=== PATIENT | male | born 1950 | race Hispanic/Latino ===

== ENCOUNTER 2019-01-20 13:13 | Emergency (ER) | payer MEDICARE ==
[2019-01-20 13:17] VITALS: RESP 18; BMI 35.9
--- NOTE | 2019-01-20 14:05 | ED PDOC ---
Arrival/HPI - General Historian: Patient - Critical Care Critical Care Minutes: 45 minutes - History of Present Illness Narrative History of Present Illness (Text): 01/20/19 14:01 68 year old male with a past medical history of hypothyroidism , mi (s/p 2 stents), cad and left ear deafness presents to the emergency room reporting nausea vomiting and abdominal discomfort since 5:30 this morning .Patient reports taking Xantac and Peptobismol with no improvement in symptoms. Patient states the pain was mainly located on the right flank with radiation to the abdomen. Patient went to [facility] where he received Toradol and was then referred the patient to the hospital for further workup. Patient denies any chest pain, fevers, chills, headaches, dizziness, syncopal episodes or any other complaints. PMD: Dr. Altamirano Medical history: hypothyroidism, mi, cad Surgical history: Left ear surgery Medications: Levothyroxine, Lovastatin Social history: Lives in [place]. Former smoker quit 2004. Occasional alcohol use. Denies drug abuse. Time/Duration: 4-6 hours Symptom Onset: Sudden Symptom Course: Improving Quality: Aching Severity Level: 2 Activities at Onset: Rest Context: Sitting, Standing, Walking <Lyndon Siegel - Last Filed: 01/20/19 20:01> <Carlito Chow - Last Filed: 01/20/19 20:15> - General Chief Complaint: Male Genitourinary Time Seen by Provider: 01/20/19 13:30 Past Medical History - Provider Review Nursing Documentation Reviewed: Yes - Cardiac Hx SD: Yes - Renal Hx Kidney Stones: Yes - Endocrine/Metabolic Hx Diabetes Mellitus Type 2: Yes Hx Hypothyroidism: Yes - Gastrointestinal Hx Diverticulitis: Yes - Psychiatric Hx Substance Use: No <Lyndon Siegle - Last Filed: 01/20/19 20:01> Family/Social History - Physician Review Nursing Documentation Reviewed: Yes Family/Social History: No Known Family HX Smoking Status: Never Smoked Hx Alcohol Use: No Hx Substance Use: No <Lyndon Siegel - Last Filed: 01/20/19 20:01> Allergies/Home Meds <Lyndon Siegel - Last Filed: 01/20/19 20:01> <Carlito Chow - Last Filed: 01/20/19 20:15> Allergies/Adverse Reactions: Allergies Penicillins Allergy (Verified 01/20/19 13:42) ANGIOEDEMA Home Medications: Home Meds Medication Instructions Recorded Confirmed ASA/Al Hydroxide/Ca Carbonat 325 mg PO 07/21/13 08/24/14 [Aspirin Non-Irritating] Lovastatin 40 mg PO 07/21/13 08/24/14 Aspirin 325 mg PO 08/24/14 08/24/14 Metformin Hydrochloride [Metformin] 500 mg PO 08/24/14 08/24/14 Review of Systems - Physician Review All systems were reviewed & negative as marked: Yes - Review of Systems Constitutional: Normal. absent: Weight Change Eyes: Normal. absent: Vision Changes, Photophobia ENT: Normal. absent: Hearing Changes, Tinnitus Respiratory: Normal. absent: SOB, Cough Cardiovascular: Normal. absent: Chest Pain, Syncope Gastrointestinal: Nausea, Vomiting. absent: Normal, Constipation, Diarrhea, Hematemesis Genitourinary Male: Normal. absent: Dysuria, Frequency, Hematuria Musculoskeletal: Normal. absent: Arthralgias Skin: Normal. absent: Rash, Pruritis Neurological: Normal. absent: Headache, Dizziness Endocrine: Normal. absent: Diaphoresis, Polyuria Hemo/Lymphatic: Normal. absent: Adenopathy, Easy Bleeding Psychiatric: Normal. absent: Anxiety, Depression <Lyndon Siegel - Last Filed: 01/20/19 20:01> Physical Exam Vital Signs Reviewed: Yes Vital Signs Temp Pulse Resp BP Pulse Ox 01/20/19 13:15 97.4 F L 59 L 18 152/78 H 98 Temperature: Afebrile Blood Pressure: Hypertensive Pulse: Bradycardic Respiratory Rate: Normal Appearance: Positive for: Well-Appearing, Non-Toxic, Comfortable Pain Distress: None Mental Status: Positive for: Alert and Oriented X 3. No: Confused - Systems Exam Head: Present: Atraumatic, Normocephalic. No: Abrasion Pupils: Present: PERRL Extroacular Muscles: Present: EOMI. No: Gaze Palsy Conjunctiva: Present: Normal. No: Injected Mouth: Present: Moist Mucous Membranes. No: Dry Neck: Present: Normal Range of Motion. No: Meningeal Signs, JVD Respiratory/Chest: Present: Clear to Auscultation, Good Air Exchange. No: Wheezes Cardiovascular: Present: Regular Rate and Rhythm, Normal S1, S2. No: Tachycardic Abdomen: Present: Normal Bowel Sounds Back: No: CVA Tenderness Upper Extremity: Present: Normal Inspection. No: Cyanosis, Edema, Swelling, Erythema Lower Extremity: Present: Normal Inspection. No: Edema, Dayami's Sign Neurological: Present: CN II-XII Intact, Speech Normal Skin: Present: Dry, Normal Color Psychiatric: Present: Alert, Oriented x 3, Normal Insight <Lyndon Siegel - Last Filed: 01/20/19 20:01> Vital Signs Temp Pulse Resp BP Pulse Ox 01/20/19 13:15 97.4 F L 59 L 18 152/78 H 98 <ClaudineCarlito - Last Filed: 01/20/19 20:15> Medical Decision Making ED Course and Treatment: 01/20/19 14:09 68 year old male presents with nausea vomting and and abdominal discomfort since this morning. Plan: CBC/CMP UA/ Urine cx Abdomen/pelvis ct w/o po or iv contrast 01/20/19 16:[address] Longo Urology. Patient cleared to be discharged with instructions to follow up in the clinic for stone removal. 01/20/19 16:21 Discussed with patients the risks of Percocet use. - RAD Interpretation Radiology Orders: 01/20/19 13:59 ABDOMEN & PELVIS [ABD & PELVIS W/O PO OR IV CONT] [CT] Stat <Lyndon Siegel - Last Filed: 01/20/19 20:01> ED Course and Treatment: Seen and examined with resident. [place] Anaya is a 68 year old female who presents to the emergency department with nausea, vomiting, and abdominal discomfort since this 5:30 AM this morning. Physical Exam Attestation: Abdomen: normal bowel sounds - Lab Interpretations Lab Results: Total Bilirubin 0.5 mg/dL (0.2-1.3) 01/20/19 14:20 AST 71 U/L (17-59) H 01/20/19 14:20 ALT 45 U/L (7-56) 01/20/19 14:20 Alkaline Phosphatase 82 U/L (38-126) 01/20/19 14:20 Total Protein 8.5 g/dL (5.8-8.3) H 01/20/19 14:20 Albumin 4.8 g/dL (3.0-4.8) 01/20/19 14:20 Globulin 3.7 gm/dL 01/20/19 14:20 Albumin/Globulin Ratio 1.3 (1.1-1.8) 01/20/19 14:20 Urine Color Yellow (YELLOW) 01/20/19 13:32 Urine Appearance Clear (CLEAR) 01/20/19 13:32 Urine pH 5.5 (4.7-8.0) 01/20/19 13:32 Ur Specific [place] >= 1.030 (1.005-1.035) 01/20/19 13:32 Urine Protein 30 mg/dL (<30 mg/dL) H 01/20/19 13:32 Urine Glucose (UA) Negative mg/dL (NEGATIVE) 01/20/19 13:32 Urine Ketones Negative mg/dL (NEGATIVE) 01/20/19 13:32 Urine Blood Large (NEGATIVE) H 01/20/19 13:32 Urine Nitrate Negative (NEGATIVE) 01/20/19 13:32 Urine Bilirubin Negative (NEGATIVE) 01/20/19 13:32 Urine Urobilinogen 0.2 E.U./dL (<1 E.U./dL) 01/20/19 13:32 Ur Leukocyte Esterase Negative Lizz/uL (NEGATIVE) 01/20/19 13:32 Urine RBC 15 - 20 /hpf (0-2) H 01/20/19 13:32 Urine WBC 1 - 3 /hpf (0-6) 01/20/19 13:32 Ur Epithelial Cells None /hpf (0-5) 01/20/19 13:32 Amorphous Sediment Few /hpf (NONE) 01/20/19 13:32 Urine Bacteria Many /hpf (NONE) 01/20/19 13:32 Hyaline Casts 0 - 2 /hpf (NONE) 01/20/19 13:32 Fine Granular Casts 0 - 2 /hpf (NONE) 01/20/19 13:32 - RAD Interpretation Radiology Orders: 01/20/19 13:59 ABDOMEN & PELVIS [ABD & PELVIS W/O PO OR IV CONT] [CT] Stat <ImmCarlito T - Last Filed: 01/20/19 20:15> Disposition/Present on Arrival - Present on Arrival Any Indicators Present on Arrival: No History of DVT/PE: No History of Uncontrolled Diabetes: No Urinary Catheter: No History of Decub. Ulcer: No History Surgical Site Infection Following: None - Disposition Have Diagnosis and Disposition been Completed?: Yes Disposition Time: 16:09 Patient Plan: Discharge <Lyndon Siegel - Last Filed: 01/20/19 20:01> <Carlito Chow - Last Filed: 01/20/19 20:15> - Disposition Diagnosis: Nephrolithiasis Disposition: HOME/ ROUTINE Condition: IMPROVED Discharge Instructions (ExitCare): Kidney Stones in Adults Additional Instructions: 1.F/u with PMD within 5 days of discharge. 2.F/u with Urology within 5 days of discharge. 3.Return to hospital for any new or worsening symptoms. Prescriptions: Ibuprofen [Motrin Tab] 600 mg PO Q6 PRN #30 tab PRN Reason: Pain, Moderate (4-7) Ondansetron [Zofran] 4 mg PO Q8H PRN #21 tab PRN Reason: Nausea/Vomiting oxyCODONE/Acetaminophen [Percocet 5/325 mg Tab] 1 tab PO Q6 #16 tab Tamsulosin [Flomax] 0.4 mg PO DAILY #5 cap Referrals: Jon Longo MD [Staff Provider] - Follow up with primary Forms: [employer] ([place])
[2019-01-20 14:26] LABS: PH,URINE 5.5 (4.7-8.0); URINE BILIRUBIN NEGATIVE (NEGATIVE); URINE BLOOD LARGE (NEGATIVE); URINE GLUCOSE (UA) NEGATIVE (NEGATIVE); URINE LEUKOCYTE ESTERASE NEGATIVE Leu/uL (NEGATIVE); URINE PROTEIN 30 mg/dL (<30 mg/dL); URINE UROBILINOGEN 0.2 E.U./dL (<1 E.U./dL)
[2019-01-20 14:30] LABS: BASO # 0.03 K/mm3 (0.0-2.0); BASO % 0.3 % (0.0-3.0); EOS % 0.1 % (1.5-5.0); HEMOGLOBIN 14.3 g/dL (14.0-18.0); LYMPH # 0.8 (1.2-3.4); LYMPH % 6.6 % (22.0-35.0); MEAN CELL VOLUME 93.9 fl (80.0-105.0); MEAN CORPUSCULAR HEMOGLOBIN 31.1 pg (25.0-35.0); MEAN CORPUSCULAR HGB CONC 33.1 g/dl (31.0-37.0); MEAN PLATELET VOLUME 9.9 fl (7.0-11.0); MONO # 0.7 (0.1-0.6); MONO % 5.6 % (1.0-6.0); RBC 4.6 10^6/uL (3.5-6.1); RED CELL DISTRIBUTION WIDTH 13.9 % (11.5-14.5); WHITE BLOOD COUNT 11.6 10^3/uL (4.5-11.0)
[2019-01-20 14:39] LABS: URINE APPEARANCE CLEAR (CLEAR); URINE COLOR YELLOW (YELLOW)
[2019-01-20 14:40] LABS: ALB/GLOB RATIO 1.3 (1.1-1.8); ALBUMIN 4.8 g/dL (3.0-4.8); ALT/SGPT 45 U/L (7-56); AST/SGOT 71 U/L (17-59); BLOOD UREA NITROGEN 26 mg/dL (7-21); CALCIUM 10.1 mg/dL (8.4-10.5); GFR NON-AFRICAN AMERICAN 55
[2019-01-20 14:44] LABS: URINE RBC 15 - 20 /hpf (0-2)
[2019-01-20 14:45] LABS: URINE FINE GRANULAR CAST 0 - 2 /hpf; URINE HYALINE CAST 0 - 2 /hpf
[2019-01-20 14:46] LABS: URINE AMORPHOUS SEDIMENT FEW /hpf; URINE BACTERIA MANY /hpf
--- NOTE | 2019-01-20 14:51 | CT ---
Date of service: 01/20/2019 PROCEDURE: CT Abdomen and Pelvis without intravenous contrast HISTORY: r/o nephrolithiasis COMPARISON: None. TECHNIQUE: Technique. Contrast dose: Radiation dose: Total exam DLP = 1099.63 mGy-cm. This CT exam was performed using one or more of the following dose reduction techniques: Automated exposure control, adjustment of the mA and/or kV according to patient size, and/or use of iterative reconstruction technique. FINDINGS: LOWER THORAX: Unremarkable. LIVER: Unremarkable. No gross lesion or ductal dilatation. GALLBLADDER AND BILE DUCTS: Unremarkable. PANCREAS: Unremarkable. No gross lesion or ductal dilatation. SPLEEN: Unremarkable. ADRENALS: Unremarkable. No mass. KIDNEYS AND URETERS: There is a 7 mm stone in the right proximal ureter. There is mild hydronephrosis. The stone is seen on coronal image 66 and axial image 98 of series 3. There is mild perinephric stranding VASCULATURE: Unremarkable. No aortic aneurysm. Aortic calcification. BOWEL: Unremarkable. No obstruction. No gross mural thickening. APPENDIX: Unremarkable. Normal appendix. PERITONEUM: Unremarkable. No free fluid. No free air. LYMPH NODES: Unremarkable. No enlarged lymph nodes. BLADDER: Unremarkable. REPRODUCTIVE: Unremarkable. BONES: No acute fracture. OTHER FINDINGS: None. IMPRESSION: There is a 7 mm stone in the right proximal ureter. There is mild hydronephrosis. The stone is seen on coronal image 66 and axial image 98 of series 3. There is mild perinephric stranding
[2019-01-20 16:18] VITALS: O2SAT 99
[2019-01-20 19:26] VITALS: BP 135/68; PULSE 72; TEMP 98.2
--- NOTE | 2019-01-21 10:09 | RAD ---
Date of service: 01/20/2019 HISTORY: nephrolithiasis COMPARISON: None available. FINDINGS: BOWEL: Normal. No obstruction. No free air. BONES: There is a degenerative bone fragment adjacent to the superior acetabulum on the right. OTHER FINDINGS: There is a 4 mm stone in the region of the lower pole of the right kidney. IMPRESSION: As above
== END 2019-01-20 17:18 | disposition home or self-care (01) ==
LOC: ED 13:13
DX: N20.0 Calculus of kidney (principal); I25.10 Atherosclerotic heart disease of native coronary artery without angina pectoris; I25.2 Old myocardial infarction; E11.9 Type 2 diabetes mellitus without complications

== ENCOUNTER 2019-01-25 10:42 | Outpatient (CLI) | payer MEDICARE | END 2019-01-25 10:43 | disposition home or self-care (01) | LOC: RAD 10:42 ==

== ENCOUNTER 2019-01-27 09:38 | Outpatient (CLI) | payer MEDICARE | END 2019-01-27 09:39 | disposition home or self-care (01) | LOC: CARDIO 09:38 ==

== ENCOUNTER 2019-02-05 11:10 | Outpatient (CLI) | payer MEDICARE | END 2019-02-05 11:11 | disposition home or self-care (01) | LOC: RAD 11:10 ==

== ENCOUNTER → 2019-02-23 10:37 | Outpatient (CLI) | payer MEDICARE | END | disposition home or self-care (01) | LOC: RAD 11-20 11:21 ==

== ENCOUNTER 2019-03-10 08:23 | Outpatient (CLI) | payer MEDICARE | END 2019-03-10 08:24 | disposition home or self-care (01) | LOC: CARDIO 08:23 | DX: Z01.810 Encounter for preprocedural cardiovascular examination (principal); R07.89 Other chest pain; I25.10 Atherosclerotic heart disease of native coronary artery without angina pectoris ==

== ENCOUNTER 2019-03-18 10:58 | Day surgery (SDC) | payer MEDICARE ==
[2019-03-11 14:14] VITALS: BMI 35.6
[2019-03-18 12:06] LABS: BLOOD UREA NITROGEN 26 mg/dL (7-21); CALCIUM 10.1 mg/dL (8.4-10.5); GFR NON-AFRICAN AMERICAN 60
[2019-03-18] MEDS ORDERED: Lidocaine 2% Jelly (Uro-Jet) ONE (13:34)
[2019-03-18] MEDS ORDERED: Iohexol 240 (50 ml) ONE (13:34)
[2019-03-18] MEDS ORDERED: cefTRIAXone (Rocephin) 1 gm Inj ONE (13:34)
[2019-03-18] MEDS ORDERED: Midazolam 2 MG/2 ML VIAL ONE (13:43)
[2019-03-18] MEDS ORDERED: Propofol 10 mg/ml Inj (20 ML) ONE (13:43)
[2019-03-18] MEDS ORDERED: Lidocaine 1% Inj (20ml) ONE (13:45)
[2019-03-18] MEDS ORDERED: ePHEDrine 50 mg/ml Inj ONE (13:57)
[2019-03-18] MEDS ORDERED: HYDROmorphone 0.5 mg/0.5 ml ISec IVP PRN (14:49)
[2019-03-18] MEDS ORDERED: Lactated Ringer's 1,000 ML IV SCH (15:00)
[2019-03-18 15:56] VITALS: PULSE 66; RESP 18; TEMP 97; O2SAT 96
--- NOTE | 2019-03-18 16:17 | RAD ---
Date of service: 03/18/2019 PROCEDURE: Retrograde pyelogram HISTORY: RT URETAL STONE COMPARISON: TECHNIQUE: 10.8 sec of fluoro time. 4.22 mGy. Three images were submitted FINDINGS: The study shows a straight catheter in the right renal collecting system with partial opacification of the collecting system. IMPRESSION: As above
[2019-03-18 16:37] VITALS: BP 132/76
--- NOTE | 2019-03-19 03:33 | OP ---
PROCEDURE DATE: 03/18/2019 PREOPERATIVE DIAGNOSIS: Right ureteral calculus. POSTOPERATIVE DIAGNOSIS: Right ureteral calculus. PROCEDURES: Cystoscopy, right retrograde pyelogram, right ureteroscopy, laser lithotripsy and basket extraction of right ureteral calculus, placement of a right ureteral stent. ATTENDING SURGEON: Jon Longo MD ANESTHESIA: General. SPECIMEN: Stone fragments were sent to Pathology. DRAINS: A 6 x 28 ureteral stent. COMPLICATIONS: There were none. OPERATIVE FINDINGS: After informed consent was obtained, the patient was taken to the operating room and placed on the operating room table. Anesthesia was administered. The patient was placed in dorsal lithotomy position and prepped and draped in the usual sterile fashion. The patient received IV antibiotics prior to start of the procedure. A 22-Omani cystoscope was placed in the patient's urethra and advanced proximally under direct vision until the bladder was entered. A full survey inspection of the bladder was performed which revealed no stones, tumors or foreign bodies of the bladder. Both ureteral orifices were visualized and appeared within normal limits. The right orifice was somewhat edematous and close to the bladder neck. The patient had prior prostate radiation therapy years ago. At this point, an open-ended ureteral catheter and a sensor wire were passed into the bladder. I was able to get the wire into the orifice and advanced it up the ureter under fluoroscopic guidance. The open-ended catheter was then able to be advanced into the ureter over the wire which was then removed. A right retrograde pyelogram was then performed by instilling contrast into the right ureter during real-time fluoroscopy. There was a dense calcification noted just at the distal ureter, approximately 1 cm inside the orifice. The ureter was mildly dilated above this point with mild hydronephrosis. At this point, the wire was then re-passed. The open-ended ureteral catheter was removed, and a 7-Omani semi-rigid ureteroscope was obtained. The ureteroscope was then passed into the bladder under direct vision. I was able to guide the ureteroscope into the orifice, and the stone was then directly visualized. The stone was blackish in color, round. Stone was large and it appeared about 7-8 mm in size. At this point, a holmium laser fiber was obtained. The holmium laser fiber was then passed through the ureteroscope and fragmentation of the stone was begun. Stone was extremely hard; however, it was able to be fragmented into small pieces. None of the pieces appeared greater than 1-2 mm in size. After the stone was fragmented, the ureteroscope was able to be easily advanced beyond this point up the ureter to the level of the renal pelvis was reached. There were no other stones or abnormalities noted. At this point, the ureteroscope was withdrawn. In the area of the distal ureter, there were some fragments of stone encountered. At this point, a Zero Tip Nitinol basket was passed. Few of the larger fragments were able to be grasped and withdrawn and were sent to Pathology as specimen. On the last pass of the ureteroscope, there were no remaining sizable fragments noted in the distal ureter. At this point, the procedure was completed. The ureteroscope was withdrawn. The cystoscope was then re-passed while backloading the guidewire. A 6 x 28 stent was obtained. It was passed through the cystoscope into the ureter and advanced proximally under direct fluoroscopic guidance until it was in the appropriate position. When the stent was in proper position, the guide wire was removed. A coil was seen in the renal pelvis on fluoroscopy. At this point, the procedure was completed. The bladder was then drained, and the cystoscope was removed. The stent string was left intact exiting from the patient's urethral meatus, so it could be removed in the office. The patient tolerated the procedure well and returned to the supine position and taken to the recovery room awake in stable condition. Jon Longo MD
== END 2019-03-18 18:00 | disposition home or self-care (01) ==
LOC: SDS 10:58
PROVIDERS: ATTEND Urology
DX: N13.2 Hydronephrosis with renal and ureteral calculous obstruction (principal); I10 Essential (primary) hypertension; I25.10 Atherosclerotic heart disease of native coronary artery without angina pectoris; E11.9 Type 2 diabetes mellitus without complications; Z79.84 Long term (current) use of oral hypoglycemic drugs
CPT/HCPCS: 36415; 52356; 74420; 80048; 88300; C1758; C1769; C2625; J0696; J1170; J2250; J2704; J3010; J7120 ×2; Q9966

== ENCOUNTER 2019-03-25 08:30 | Day surgery (SDC) | payer MEDICARE ==
[2019-03-10 13:35] VITALS: BMI 35.6
--- NOTE | 2019-03-25 01:03 | HP ---
DATE OF EXAM: 03/24/2019 REASON FOR ADMISSION: Left heart cath, possible angioplasty and abnormal stress test. BRIEF CLINICAL HISTORY: This is a 68-year-old male with past medical history significant for hypertension, hyperlipidemia, type 2 diabetes, admitted for elective cardiac cath, possible angioplasty because of abnormal stress test. The patient was seen by Dr. Salcido, complaining of chest pain and dyspnea on exertion. The patient is scheduled for elective cardiac cath, also the patient underwent stress test, that was abnormal, so the patient is scheduled for elective cardiac cath, possible angioplasty. PAST MEDICAL HISTORY: Significant for diabetes, hypertension, hyperlipidemia, history of coronary artery disease, history of PTCA of LAD, and circumflex 2005. SOCIAL HISTORY: Denies any smoking. Denies any history of alcohol abuse. CURRENT MEDICATIONS: The patient is taking losartan 40 mg daily, levothyroxine 0.05 mg daily, cilostazol, 81 mg aspirin, daily, valsartan, Diovan 80 mg daily, metformin 850 mg daily, magnesium oxide mg p.o. daily. ALLERGIES: PENICILLIN. RECENT CARDIAC WORKUP FOLLOWS: The patient had stress test dated 03/10/2019, that shows abnormal myocardial perfusion study, reversible small size apical defect suspicious for ischemia, fixed defect small inferior suggestive of previous injury. When comparison made from 08/24/2014, these changes appeared new, recent study dated 03/11/2019, ejection fraction 58%. LABORATORY DATA: Previous blood workup: WBC 7.3, hemoglobin 14, hematocrit 43.6, and platelet count 213, dated 01/27/2019. The patient had chemistry; sodium 140, potassium 5.4, chloride 106, carbon dioxide of 30, anion gap of 14, BUN 26, and creatinine 1.2 dated 03/18/2019. REVIEW OF SYSTEMS: As per HPI. PHYSICAL EXAMINATION: GENERAL: Height of the patient 6 feet 2 inches, weight of the patient 278 pounds, and body mass index 35.7 kg/m2. VITAL SIGNS: Temperature afebrile, heart rate 80, and blood pressure 130/80. HEENT: PERRLA. Extraocular muscles intact. NECK: Supple. No carotid bruits. No thyromegaly. CHEST: Clear to auscultation. HEART: S1 and S2 regular. ABDOMEN: Soft. EXTREMITIES: Clubbing and cyanosis negative. Blood workup as mentioned. IMPRESSION AND PLAN: A 68-year-old morbidly obese male with history of diabetes, hypertension, hyperlipidemia, history of chronic kidney disease, status post percutaneous transluminal coronary angioplasty in 2004 left anterior descending and circumflex. Recent stress test that is abnormal, so the patient is scheduled for elective cardiac catheterization and possible angioplasty. Risks, benefits, and alternatives were explained to the patient, the patient agreed, and we will proceed for cardiac catheterization. Further recommendation depending upon cardiac catheterization. We will follow with you. Thank you Dr. Tomlinson for providing us the opportunity in taking care of the patient, Ren[place] Anaya. Shamar Jean MD
[2019-03-25 09:23] LABS: BASO # 0.03 K/mm3 (0.0-2.0); BASO % 0.4 % (0.0-3.0); EOS # 0.2 (0.0-0.7); EOS % 3.2 % (1.5-5.0); HEMOGLOBIN 11.8 g/dL (14.0-18.0); LYMPH # 1.4 (1.2-3.4); LYMPH % 19.6 % (22.0-35.0); MEAN CELL VOLUME 93.1 fl (80.0-105.0); MEAN CORPUSCULAR HGB CONC 32.2 g/dl (31.0-37.0); MEAN PLATELET VOLUME 9.5 fl (7.0-11.0); MONO # 0.6 (0.1-0.6); MONO % 8.4 % (1.0-6.0); RBC 3.93 10^6/uL (3.5-6.1); WHITE BLOOD COUNT 7.3 10^3/uL (4.5-11.0)
[2019-03-25 09:24] LABS: INR 1.06; PARTIAL THROMBOPLASTIN TIME 35.1 Seconds (26.9-38.3)
[2019-03-25 09:35] LABS: CALCIUM 9.7 mg/dL (8.4-10.5)
--- NOTE | 2019-03-25 09:56 | CARD ---
APPROVED REPORT Date of service: 03/25/2019 EKG Measurement Heart [id number] <Conclusion> Sinus bradycardia with sinus arrhythmia with 1st degree AV block Otherwise normal ECG
[2019-03-25] MEDS ORDERED: Lidocaine PF 2% (5 ml) Inj (For Cardiac Arrhy) ONE (11:50)
[2019-03-25] MEDS ORDERED: Iodixanol 320 MG/ML 100 ML BOTTLE IV ONE (11:53)
[2019-03-25] MEDS ORDERED: Iodixanol 320 MG/ML 200 ML BOTTLE IV ONE (11:53)
[2019-03-25] MEDS ORDERED: Iohexol 350mgl/ml 50 ML ONE (11:53)
[2019-03-25] MEDS ORDERED: Phenylephrine 10 mg/ml Inj ONE (11:55)
[2019-03-25] MEDS ORDERED: Midazolam 2 MG/2 ML VIAL ONE (12:14)
[2019-03-25] MEDS ORDERED: Sodium Chloride 0.9% 1,000 ML IV SCH (13:15)
--- NOTE | 2019-03-25 13:47 | CPOSTOP ---
DATE: 03/25/2019 PHYSICIAN: Shamar Jean MD HIM ASSISTANT: ENRIQUE Beavers TYPE OF ANESTHESIA: Moderate conscious sedation, total 2 mg of Versed and 100 of fentanyl given. PRE-PROCEDURE DIAGNOSES: Unstable angina, abnormal stress test, anteroseptal reversible ischemia. PROCEDURE PERFORMED: Left heart catheterization. FINDING: Patent stent in LAD, patent stent in the circumflex, moderate disease in RCA. FINAL DIAGNOSES: Nonobstructive coronary artery disease, mildly decreased left ventricular function. POSTPROCEDURE PATIENT CONDITION: Stable. VASCULAR ACCESS SITE: Right femoral artery. CLOSURE DEVICE APPLIED: None, manual compression. TOTAL RADIATION DOSE: 7083 milligray unit. CUMULATIVE DOSE: 781 milligray unit. FLUORO TIME: 3.3 minute. TOTAL CONTRAST USED: 30 mL. Shamar Jean MD
[2019-03-25 15:54] VITALS: TEMP 98.6
[2019-03-25] MEDS ORDERED: Oxycodone/Acetaminophen 5/325 mg Tab PO PRN (16:16)
[2019-03-25 18:10] LABS: BASO # 0.02 K/mm3 (0.0-2.0); BASO % 0.2 % (0.0-3.0); EOS # 0.2 (0.0-0.7); EOS % 2.7 % (1.5-5.0); HEMOGLOBIN 10.9 g/dL (14.0-18.0); LYMPH # 1.6 (1.2-3.4); LYMPH % 18.4 % (22.0-35.0); MEAN CELL VOLUME 92.9 fl (80.0-105.0); MEAN CORPUSCULAR HEMOGLOBIN 29.8 pg (25.0-35.0); MEAN CORPUSCULAR HGB CONC 32.1 g/dl (31.0-37.0); MONO # 0.8 (0.1-0.6); MONO % 9.8 % (1.0-6.0); RBC 3.66 10^6/uL (3.5-6.1); WHITE BLOOD COUNT 8.4 10^3/uL (4.5-11.0)
[2019-03-25 18:22] LABS: CALCIUM 9.2 mg/dL (8.4-10.5)
[2019-03-25 18:29] VITALS: O2SAT 100
[2019-03-25 19:59] VITALS: BP 136/60; PULSE 60; RESP 20
== END 2019-03-25 22:39 | disposition home or self-care (01) ==
LOC: SDSVAS 08:30 → 2RSO 13:16 → SDSVAS 22:39
PROVIDERS: ATTEND Internal Medicine Cardiovascular Disease
DX: I25.110 Atherosclerotic heart disease of native coronary artery with unstable angina pectoris (principal); I12.9 Hypertensive chronic kidney disease with stage 1 through stage 4 chronic kidney disease, or unspecified chronic kidney disease; N18.9 Chronic kidney disease, unspecified; E11.22 Type 2 diabetes mellitus with diabetic chronic kidney disease; E78.5 Hyperlipidemia, unspecified; I44.0 Atrioventricular block, first degree; E66.01 Morbid (severe) obesity due to excess calories; Z68.35 Body mass index [BMI] 35.0-35.9, adult; Z79.82 Long term (current) use of aspirin; Z79.84 Long term (current) use of oral hypoglycemic drugs; Z79.899 Other long term (current) drug therapy; Z88.0 Allergy status to penicillin; Z98.61 Coronary angioplasty status
CPT/HCPCS: 36415; 80048; 80061; 85025; 85610; 85730; 86850; 86900; 93005; 93458; 99152; 99153; C1769 ×2; C1894; C2629; J1644; J1940; J2250; J3010; J7030; J7040; Q9966